=== PATIENT | male | born 1985 | race Two or more races ===

== ENCOUNTER 2021-01-11 14:19 | Emergency (ER) | payer OTHER ==
[~2021-01-11] VITALS: Ht 167.6 cm; Wt 77.1 kg
[2021-01-11] MEDS ORDERED: PEPCID AC20 MG PO (19:39)
[2021-01-11] MEDS ORDERED: OMEPRAZOLE MAGN20 M1 PO (19:39)
[2021-01-11] MEDS ORDERED: LEVOFLOXACIN250 MG PO (19:41)
== END 2021-01-11 20:41 | disposition home or self-care (01) ==
LOC: ER 14:19
DX: K29.60 Other gastritis without bleeding (principal)

== ENCOUNTER 2021-08-03 21:22 | Emergency (ER) | payer OTHER ==
[~2021-08-03] VITALS: Ht 152.4 cm; Wt 79.4 kg
[~2021-08-03 21:22] MED LIST: LEVOFLOXACIN250 MG PO; OMEPRAZOLE MAGN20 M1 PO; PEPCID AC20 MG PO
[2021-08-03] MEDS ORDERED: LIPITOR40 MG PO (21:33)
[2021-08-04] MEDS ORDERED: PROVENTIL HFA6.7 GM IH (03:25)
[2021-08-04] MEDS ORDERED: ALBUTEROL2.5 MG/3 M IH (03:25)
[2021-08-04] MEDS ORDERED: FLOVENT HFA12 G1 IH (03:25)
== END 2021-08-04 03:39 ==
LOC: ER 21:22
DX: J02.9 Acute pharyngitis, unspecified (principal); R06.02 Shortness of breath; Z91.013 Allergy to seafood

== ENCOUNTER 2023-11-08 06:39 | Outpatient (CLI) | payer OTHER ==
[~2023-11-08 06:39] MED LIST changes: +ALBUTEROL2.5 MG/3 M IH; +FLOVENT HFA12 G1 IH; +LIPITOR40 MG PO; +PROVENTIL HFA6.7 GM IH
[2023-11-08 07:26] LABS: HEMATOCRIT 43.4 % (39.0-48.0); HEMOGLOBIN 14.4 g/dL (13-16.00); MEAN CELL VOLUME 83.7 fL (80.0-100.00); MEAN CORPUSCULAR HEMOGLOBIN 27.8 pg (27.00-32.0); MEAN CORPUSCULAR HGB CONC 33.3 g/dl (32.0-36.0); PLATELET COUNT 236 K/uL (150-450); RED BLOOD COUNT 5.18 M/uL (4.00-6.00); RED CELL DISTRIBUTION WIDTH 14.1 % (11.5-14.5)
[2023-11-08 07:36] LABS: PH,URINE 5.5 (5.0-8.0); URINE APPEARANCE Clear; URINE BACTERIA 8.8 uL (0.0-1933); URINE BILIRRUBIN Negative (NEGATIVE); URINE BLOOD Negative; URINE COLOR Yellow; URINE GLUCOSE Negative (NEGATIVE); URINE KETONE Negative (NEGATIVE); URINE LEUKOCYTE Negative; URINE NITRATE Negative; URINE PROTEIN Negative (NEGATIVE); URINE UROBILINOGEN 0.2 E.U./dl; URINE WBC 2.6 uL (0.0-23.2)
[2023-11-08 07:51] LABS: URINE EPITHELIAL CELLS 0.6 uL (0.0-38.8); URINE RBC 0.7 uL (0.0-20.8)
[2023-11-08 08:24] LABS: BILIRUBIN TOTAL 0.56 mg/dL (0.3-1.2); CALCIUM 8.9 mg/dL (8.5-10.1); CHOL HDL RATIO 3.9 (0-5.0); CREATININE SERUM 0.98 mg/dL (0.70-1.30); GFR 85.6; GLOBULINA 3.2 G/DL (2.4-3.5); POTASSIUM 3.95 mEq/L (3.5-5.1); PROSTATIC SPECIFIC ANTIGEN 0.52 NG/ML (0.010-4.00); TOTAL PROTEIN 7.2 gm/dL (6.4-8.2); TSH 1.74 uIU/mL (0.358-3.74)
== END 2023-11-08 06:44 | disposition home or self-care (01) ==
LOC: LAB 06:39
PROVIDERS: ATTEND General Practice
DX: D64.89 Other specified anemias (principal); N39.0 Urinary tract infection, site not specified; E78.2 Mixed hyperlipidemia; E03.9 Hypothyroidism, unspecified; I11.9 Hypertensive heart disease without heart failure; E11.9 Type 2 diabetes mellitus without complications

== ENCOUNTER 2024-07-14 10:10 | Emergency (ER) | payer OTHER ==
[~2024-07-14] VITALS: Ht 167.6 cm; Wt 81.6 kg
[2024-07-14] MEDS ORDERED: KETOROLAC TROMETHAMINE 60 MG VIAL IM ONE ×2 (10:38→10:45)
[2024-07-14] MEDS ORDERED: ORPHENADRINE CITRATE 30 MG/ML AMPUL ONE (10:38)
[2024-07-14] MEDS ORDERED: ORPHENADRINE CITRATE 30 MG/ML AMPUL IM ONE (10:45)
== END 2024-07-14 11:49 | disposition home or self-care (01) ==
LOC: ER 10:17
DX: M62.830 Muscle spasm of back (principal); E78.00 Pure hypercholesterolemia, unspecified; Z91.013 Allergy to seafood

== ENCOUNTER → 2024-07-19 | Outpatient (CLI) | payer OTHER | END | disposition home or self-care (01) | LOC: RAD 13:44 | PROVIDERS: ATTEND General Practice | DX: S20.211A Contusion of right front wall of thorax, initial encounter (principal); X58.XXXA Exposure to other specified factors, initial encounter; Y93.9 Activity, unspecified; Y92.9 Unspecified place or not applicable; Y99.9 Unspecified external cause status ==